=== PATIENT | male | born 1980 | race Caucasian/White ===

== ENCOUNTER 2017-04-16 05:25 | Emergency (ER) | payer MEDICAID ==
[~2017-04-16] VITALS: Ht 172.7 cm; Wt 95.5 kg
[~2017-04-16 05:25] MED LIST: HYDR-762 PO; IBUP-1542 PO; TAMS-14 PO
[2017-04-16 05:27] VITALS: Ht 172.7 cm; Wt 95.5 kg
--- NOTE | 2017-04-16 06:21 | ERD ---
ER Documentation Chief Complaint Date/Time DATE: 04/16/17 TIME: 06:13 Chief Complaint L flank pain today HPI 37-year-old male presents emergency department for left sided flank pain that started today. No trauma. Has mild dysuria. Denies headache, dizziness blurry vision, chest pain, neck pain, shoulder pain, chest pain, abdominal pain, nausea, vomiting, trauma, difficulty breathing, constipation, diarrhea, loss of bowel and bladder control, numbness or tingling sensation, recent travel, recent exposure to any illness, recent antibiotic use in the last 3 months, fever, chills. No known drug allergies. Past medical history of right-sided kidney stone. Surgical history of left-sided inguinal hernia. Medication: Motrin. Social: Not working at this time. Denies smoking, use of alcohol, use of illegal drugs. Physical examination revealed the patient has left-sided flank pain. Left-sided CVA tenderness. ROS All systems reviewed and are negative except as per history of present illness. Medications Home Meds Active Scripts Tramadol HCl (Tramadol HCl) 50 Mg Tablet, 50 MG PO Q6, #20 TAB Prov:JULIÁN PALUMBO 04/16/17 Tamsulosin Hcl* (Flomax*) 0.4 Mg Cap.er.24h, 0.4 MG PO DAILY, #30 CAP Prov:MARLEENALINAJULIÁN Jenkins 04/16/17 Ondansetron Hcl* (Zofran*) 4 Mg Tablet, 4 MG PO Q8H Y for NAUSEA AND/OR VOMITING , #30 TAB Prov:LINWOODJOHNSONMARLENI Alice 04/16/17 Ibuprofen* (Motrin*) 800 Mg Tab, 800 MG PO Q8 Y for PAIN AND OR ELEVATED TEMP, # 30 TAB Prov:LINWOODJOHNSONMARLENI Alice 04/16/17 Ciprofloxacin Hcl* (Ciprofloxacin Hcl*) 500 Mg Tablet, 500 MG PO BID for 10 Days , TAB Prov:MARLEENALINAJOHNSONMARLENI Alice 04/16/17 Tamsulosin Hcl* (Flomax*) 0.4 Mg Cap.er.24h, 0.4 MG PO QPM, #30 CAP Prov:MURPHY HENSON MD 08/07/15 Hydrocodone Bit-Acetaminophen* (Ada*) 10-325 Mg Tablet, 1 TAB PO Q6 Y for PAIN , #16 TAB Prov:MURPHY HENSON MD 08/07/15 Ibuprofen* (Motrin*) 600 Mg Tab, 600 MG PO Q6H Y for PAIN AND OR ELEVATED TEMP, #30 TAB Prov:MURPHY HENSON MD 08/07/15 Allergies Allergies: Coded Allergies: No Known Allergy (Unverified , 08/07/15) PMhx/Soc History of Surgery: Yes (hernia) Hx Alcohol Use: Yes (occasionally) Hx Substance Use: No Hx Tobacco Use: No Smoking Status: Never smoker Physical Exam Vitals Vital Signs Date Time Temp Pulse Resp B/P Pulse Ox O2 Delivery O2 Flow Rate FiO2 04/16/17 05:27 98.2 78 20 167/93 98 Physical Exam Const: [] Head: Atraumatic Eyes: Normal Conjunctiva ENT: Normal External Ears, Nose and Mouth. Neck: Full range of motion..~ No meningismus. Resp: Clear to auscultation bilaterally Cardio: Regular rate and rhythm, no murmurs Abd: Soft, non tender, non distended. Normal bowel sounds. Has left-sided CVA tenderness. There is no right upper/right lower/epigastric/left upper/left lower abdominal tenderness and light and deep palpation. Ambulatory with steady gait and without pain to abdomen. Able to jump 5 times without developing right-sided or right lower abdominal pain. No peritoneal signs. Skin: No petechiae or rashes Back: No midline or flank tenderness Ext: No cyanosis, or edema. C-spine/T-spine/L-spine midline with no deformity and is good and full range of motion. Neur: Awake and alert Psych: Normal Mood and Affect Result Diagram: 04/16/17 0646 04/16/17 0646 Results 24 hrs Laboratory Tests Test 04/16/17 06:46 White Blood Count 9.410^3/ul Red Blood Count 4.7910^6/ul Hemoglobin 14.7g/dl Hematocrit 41.8% Mean Corpuscular Volume 87.3fl Mean Corpuscular Hemoglobin 30.7pg Mean Corpuscular Hemoglobin Concent 35.2g/dl Red Cell Distribution Width 13.2% Platelet Count 12007^3/UL Mean Platelet Volume 10.1fl Neutrophils % 79.7% Lymphocytes % 13.9% Monocytes % 5.3% Eosinophils % 0.6% Basophils % 0.2% Nucleated Red Blood Cells % 0.0/100WBC Neutrophils # (Manual) 7.510^3/ul Lymphocytes # 1.310^3/ul Monocytes # 0.510^3/ul Eosinophils # 0.110^3/ul Basophils # 0.010^3/ul Nucleated Red Blood Cells # 0.010^3/ul Urine Color YELLOW Urine Clarity SLIGHTLY CLOUDY Urine pH 7.0 Urine Specific [place] 1.021 Urine Ketones NEGATIVEmg/dL Urine Nitrite NEGATIVEmg/dL Urine Bilirubin NEGATIVEmg/dL Urine Urobilinogen NEGATIVEmg/dL Urine Leukocyte Esterase NEGATIVELeu/ul Urine Microscopic RBC > 182/HPF Urine Microscopic WBC 4/HPF Urine Bacteria FEW/HPF Urine Mucus FEW/HPF Urine Hemoglobin 3+mg/dL Urine Glucose NEGATIVEmg/dL Urine Total Protein 1+mg/dl Sodium Level 145mmol/L Potassium Level 3.9mmol/L Chloride Level 102mmol/L Carbon Dioxide Level 28mmol/L Anion Gap 19 Blood Urea Nitrogen 14mg/dl Creatinine 0.80mg/dl Glucose Level 127mg/dl Calcium Level 9.4mg/dl Total Bilirubin 0.3mg/dl Direct Bilirubin 0.00mg/dl Indirect Bilirubin 0.3mg/dl Aspartate Amino Transf (AST/SGOT) 33IU/L Alanine Aminotransferase (ALT/SGPT) 44IU/L Alkaline Phosphatase 100IU/L Total Protein 8.4g/dl Albumin 4.6g/dl Globulin 3.80g/dl Albumin/Globulin Ratio 1.21 Amylase Level 86U/L Lipase 65U/L Current Medications Medications (Trade) Dose Ordered Sig/Moriah Route PRN Reason Start Time Stop Time Status Last Admin Dose Admin Ketorolac Tromethamine (Toradol) 60 mg ONCE STAT IM 04/16/17 06:22 04/16/17 06:25 DC 04/16/17 06:45 Ondansetron HCl 4 mg 4 mg ONCE STAT ODT 04/16/17 06:22 04/16/17 06:25 DC 04/16/17 06:44 Sodium Chloride (NS) 1,000 ml @ 1,000 mls/hr Q1H ONCE IV 04/16/17 07:30 04/16/17 08:29 DC 04/16/17 07:45 Morphine Sulfate 4 mg 4 mg ONCE STAT IV 04/16/17 07:16 04/16/17 07:17 DC 04/16/17 07:16 Ciprofloxacin/ Dextrose (Cipro Ivpb) 200 ml @ 200 mls/hr ONCE ONCE IVPB 04/16/17 08:00 04/16/17 08:59 04/16/17 07:55 Procedures/MDM Examination: Please see physical examination. Disease process, medical treatment was explained to the patient and family member. They verbalized understanding and agreed with the diagnostic tests, medical treatment, and follow-up care. Radiology: CT abdomen/pelvis without contrast Impression: 3 mm obstructing calculus at the left UVJ with mild left hydroureter. No additional renal, ureteral or bladder calculi are seen. Moderate to large fat containing left inguinal hernia. Blood works: Reviewed. Urinalysis: UTI. Treatment: Toradol. Zofran. IV insertion. Normal saline 1000 cc IV bolus. Cipro IV. Morphine IV> Re-evaluation: Denies headache, dizziness, blurry vision, neck pain, shoulder pain, chest pain, back pain, abdominal pain, nausea, vomiting. No episode of emesis in the emergency department. Alert and oriented 4. Speaks full and clear sentences. Respirations even and unlabored. Lung sounds clear to auscultation. Active bowel sounds. There is no right upper/right lower/ epigastric/left upper/left lower abdominal tenderness and light and deep palpation. Negative on Rovsings sign. Negative Calista sign. Able to jump 5 times without developing right-sided abdominal pain. No peritoneal signs. Ambulatory with steady gait. No neurovascular deficits. No neurological deficits. Consultation: Case was discussed with supervising emergency room physician, Dr. George Bell who agreed with my medical decision making to discharge the patient. Differential diagnosis:Pancreatitis versus cholelithiasis versus cholecystitis versus appendicitis versus diverticulitis versus nephrolithiasis versus pyelonephritis versus urinary tract infection Medical decision makin-year-old male presents emergency department for left sided flank pain that started today. No trauma. Has mild dysuria. Patient's complaint, patient's history about his complaint, my physical findings , my diagnostic test results, my reevaluation are consistent my final diagnosis of kidney stone, UTI. Medications prescribed are the following: Ciprofloxacin. Tramadol. Flomax. Motrin. Zofran. Patient and family member are made aware of the side effects and adverse reactions of the medications prescribed. Instructed on when to seek emergent and medical attention in case allergic/anaphylactic reactions or severe side effects and or adverse reactions to medications. Patient and family member verbalized understanding. Patient instructed Instructed to follow-up with his PCP in 24-48 hours. Follow-up with urologist in 24-48 hours. Instructed to Call 911 for chest pain, shortness of breath. Advised to come back here in ED as soon as possible for severity of symptoms which includes but not limited to: any new symptoms; shortness of breath/difficulty of breathing; cardiovascular changes; severe gastrointestinal symptoms; signs and symptoms of bleeding and or infection; signs of compartment syndrome/neurovascular changes; neurological changes/deficits. Patient and family member verbalized understanding. Upon discharge, patient is alert and oriented x 4, speaks full and clear sentences, denies pain, has no neurological deficits, has no neurovascular deficits, difficulty of breathing. Breathing even and unlabored. Lung sounds are clear to auscultation. Not in distress. Appears comfortable. Ambulatory with steady gait. Appears satisfied with care provided here in ED. Departure Diagnosis: Primary Impression: Flank pain Additional Impressions: Kidney stone UTI (urinary tract infection) Condition: Stable Additional Instructions: Instructed to follow-up with his PCP in 24-48 hours. Follow-up with urologist in 24-48 hours. Instructed to Call 911 for chest pain, shortness of breath. Advised to come back here in ED as soon as possible for severity of symptoms which includes but not limited to: any new symptoms; shortness of breath/difficulty of breathing; cardiovascular changes; severe gastrointestinal symptoms; signs and symptoms of bleeding and or infection; signs of compartment syndrome/neurovascular changes; neurological changes/deficits. Patient and family member verbalized understanding. JULIÁN PALUMBO Apr 16, 2017 06:21
[2017-04-16] MEDS ORDERED: KETOROLAC 60 MG INJ IM STA (06:22)
[2017-04-16] MEDS ORDERED: ONDANSETRON (ODT) 4 MG TAB ODT STA (06:22)
[2017-04-16 06:57] LABS: BASOPHILS % 0.2 % (0.0-2.0); EOSINOPHILS # 0.1 10^3/ul (0.0-0.5); EOSINOPHILS % 0.6 % (0.0-7.0); HEMATOCRIT 41.8 % (42.0-52.0); HEMOGLOBIN 14.7 g/dl (14.0-18.0); LYMPHOCYTES # 1.3 10^3/ul (0.8-2.9); LYMPHOCYTES % 13.9 % (15.0-51.0); MEAN CORPUSCULAR HEMOGLOBIN 30.7 pg (29.0-33.0); MEAN CORPUSCULAR HGB CONC 35.2 g/dl (32.0-37.0); MEAN CORPUSCULAR VOLUME 87.3 fl (82.0-101.0); MEAN PLATELET VOLUME 10.1 fl (7.4-10.4); MONOCYTE # 0.5 10^3/ul (0.3-0.9); MONOCYTES % 5.3 % (0.0-11.0); NEUTROPHILS % 79.7 % (39.0-77.0); PLATELET COUNT 240 10^3/UL (140-415); RED BLOOD COUNT 4.79 10^6/ul (4.70-6.10); RED CELL DISTRIBUTION WIDTH 13.2 % (11.5-14.5); WHITE BLOOD COUNT 9.4 10^3/ul (4.8-10.8)
--- NOTE | 2017-04-16 07:10 | RADRPT ---
PROCEDURE: CT Abdomen and Pelvis without contrast. CLINICAL INDICATION: Left costovertebral angle tenderness. TECHNIQUE: Routine axial tomographic images of the abdomen and pelvis were obtained from the domes the diaphragm to the symphysis pubis. The patient was scanned withoutoral or intravenous contrast. Coronal and sagittal reformatted images were obtained from the axial source images. Images were re viewed on a high-resolution PACS workstation. The total exam CTDI equals 19.61 mGy and the total exa m DLP equals 1319.73 mGy-cm. One or more of the following dose reduction techniques were used: Aut omated exposure control, adjustment of the mA and / or kV according to patient size, or use of itera tive reconstruction technique. COMPARISON: CT abdomen and pelvis dated 08/07/2015 FINDINGS: The visualized portions of the lung bases are clear. Evaluation of the intra-abdominal solid or cleo is somewhat limited on this noncontrast examination. The liver appears normal in size. There is no intra or extrahepatic biliary dilatation. The gallbladder is unremarkable by CT criteria. Th e spleen, pancreas, and adrenal glands are unremarkable. The kidneys are symmetric in size. There is a 3 mm calculus at the left UVJ. There is mild left hy droureter. The urinary bladder is grossly unremarkable. There is a small hiatal hernia. The bowel demonstrates normal course and caliber. There is no evid ence of bowel obstruction. The appendix is normal in appearance. The pelvic organs are grossly unr emarkable. No intraperitoneal free fluid, free air, or abscess is identified. No retroperitoneal, m esenteric, or inguinal lymphadenopathy is identified. The aorta is normal in caliber. There is a fat -containing left inguinal hernia. The osseous structures demonstrate disk protrusions at L4-5 and L5-S1. No significant subcutaneous soft tissue abnormalities are seen. IMPRESSION: 1. 3 mm obstructing calculus at the left UVJ with mild left hydroureter. No additional renal, uret eral or bladder calculi are seen. 2. Moderate to large fat containing left inguinal hernia. RPTAT: HH .Jacinta Patino MD, MD Date Time Electronically viewed and signed by .Jacinta Patino MD, on 04/16/2017 07:10 .G/
[2017-04-16] MEDS ORDERED: morphine 4 MG/ML VIAL IV STA ×2 (07:16→09:01)
[2017-04-16 07:21] LABS: ALBUMIN 4.6 g/dl (3.3-4.9); ALBUMIN/GLOBULIN RATIO 1.21; BILIRUBIN,INDIRECT 0.3 mg/dl (0-1.1); BILIRUBIN,TOTAL 0.3 mg/dl (0.2-1.3); CALCIUM 9.4 mg/dl (8.4-10.2); CREATININE 0.8 mg/dl (0.61-1.24); POTASSIUM 3.9 mmol/L (3.5-5.1); TOTAL PROTEIN 8.4 g/dl (6.1-8.1)
[2017-04-16 07:25] LABS: ADD UMIC YES; UR ASCORBIC ACID NEGATIVE (NEGATIVE); UR BACTERIA FEW /HPF (NONE SEEN); UR BILIRUBIN (Dip) NEGATIVE (NEGATIVE); UR BLOOD (Dip) 3+ mg/dL (NEGATIVE); UR CLARITY SLIGHTLY CLOUDY (CLEAR); UR COLOR YELLOW (YELLOW); UR GLUCOSE (Dip) NEGATIVE (NEGATIVE); UR KETONES (Dip) NEGATIVE (NEGATIVE); UR LEUKOCYTE ESTERASE (Dip) NEGATIVE Leu/ul (NEGATIVE); UR MUCUS FEW /HPF (NONE SEEN); UR NITRITE (Dip) NEGATIVE (NEGATIVE); UR RBC > 182 /HPF (0-5); UR SPECIFIC GRAVITY (Dip) 1.021 (1.003-1.030); UR TOTAL PROTEIN (Dip) 1+ mg/dl (NEGATIVE); UR UROBILINOGEN (Dip) NEGATIVE (NEGATIVE)
[2017-04-16] MEDS ORDERED: SOD CHLORIDE 0.9% 1,000 ML IV ONE (07:30)
[2017-04-16] MEDS ORDERED: CIPR500T4 PO (07:41)
[2017-04-16] MEDS ORDERED: IBUP800T25 PO (07:41)
[2017-04-16] MEDS ORDERED: ONDA4TAB8 PO (07:42)
[2017-04-16] MEDS ORDERED: TAMS-14 PO (07:42)
[2017-04-16] MEDS ORDERED: TRAM50TA2 PO (07:42)
[2017-04-16] MEDS ORDERED: CIPROFLOXACIN 400MG/D5W 200 ML IVPB ONE (08:00)
== END 2017-04-16 09:12 | disposition home or self-care (01) ==
LOC: FTE 05:25
DX: R10.9 Unspecified abdominal pain (principal); N20.0 Calculus of kidney; N39.0 Urinary tract infection, site not specified
CPT/HCPCS: 74176; 80053; 81001; 82150; 83690; 85025; 87086; 96372; 96374; 96375; 96376; J0744; J1885; J2270; J7030; Z7502; Z7610

== ENCOUNTER 2018-12-18 11:26 | Emergency (ER) | payer MEDICAID ==
[~2018-12-18] VITALS: Ht 172.7 cm; Wt 94.4 kg
[~2018-12-18 11:26] MED LIST changes: +CIPR500T4 PO; +IBUP800T48 PO; +ONDA4TAB8 PO; +TRAM50TA2 PO
[2018-12-18 11:37] VITALS: BP 138/92; PULSE 124; RESP 18; Ht 172.7 cm; Wt 94.4 kg
--- NOTE | 2018-12-18 13:33 | ERD ---
ER Documentation Chief Complaint Chief Complaint dysuria x 4 days HPI 38-year-old male, previously healthy, presents to the emergency department, complaining of 4 days with dysuria. Otherwise, no fever, no chills, no hematuria, no penile discharge. The patient denies history of sexually transmitted infections, no abdominal pain. ROS All systems reviewed and are negative except as per history of present illness. Medications Home Meds Active Scripts Tamsulosin Hcl* (Flomax*) 0.4 Mg Cap.er.24h, 0.4 MG PO QPM, #30 CAP Prov:ROHIT JOSHI MD 12/18/18 Tramadol HCl (Tramadol HCl) 50 Mg Tablet, 50 MG PO Q6, #20 TAB Prov:JULIÁN PALUMBO 04/16/17 Tamsulosin Hcl* (Flomax*) 0.4 Mg Cap.er.24h, 0.4 MG PO DAILY, #30 CAP Prov:JULIÁN PALUMBO 04/16/17 Ondansetron Hcl* (Zofran*) 4 Mg Tablet, 4 MG PO Q8H PRN for NAUSEA AND/OR VOM ITING, #30 TAB Prov:JULIÁN PALUMBO 04/16/17 Ibuprofen* (Motrin*) 800 Mg Tab, 800 MG PO Q8 PRN for PAIN AND OR ELEVATED TEMP, #30 TAB Prov:JULIÁN PALUMBO 04/16/17 Ciprofloxacin Hcl* (Ciprofloxacin Hcl*) 500 Mg Tablet, 500 MG PO BID for 10 Days, TAB Prov:JULIÁN PALUMBO 04/16/17 Tamsulosin Hcl* (Flomax*) 0.4 Mg Cap.er.24h, 0.4 MG PO QPM, #30 CAP Prov:MURPHY HENSON MD 08/07/15 Hydrocodone Bit-Acetaminophen* ([place]*) 10-325 Mg Tablet, 1 TAB PO Q6 PRN for PAIN, #16 TAB Prov:MURPHY HENSON MD 08/07/15 Ibuprofen* (Motrin*) 600 Mg Tab, 600 MG PO Q6H PRN for PAIN AND OR ELEVATED TEMP, #30 TAB Prov:MURPHY HENSON MD 08/07/15 Allergies Allergies: Coded Allergies: No Known Allergy (Unverified , 08/07/15) PMhx/Soc History of Surgery: Yes (hernia) Hx Alcohol Use: Yes (occasionally) Hx Substance Use: No Hx Tobacco Use: No Smoking Status: Never smoker FmHx Family History: No diabetes, No coronary disease Physical Exam Vitals Vital Signs Date Temp Pulse Resp B/P (MAP) Pulse Ox O2 O2 Flow FiO2 Time Delivery Rate 12/18/18 98.1 124 18 138/92 97 11:37 (107) Physical Exam Const: No acute distress Head: Atraumatic Eyes: Normal Conjunctiva ENT: Normal External Ears, Nose and Mouth. Neck: Full range of motion. No meningismus. Resp: Clear to auscultation bilaterally Cardio: Regular rate and rhythm, no murmurs Abd: Soft, non tender, non distended. Normal bowel sounds Skin: No petechiae or rashes Back: No midline or flank tenderness Ext: No cyanosis, or edema Neur: Awake and alert Psych: Normal Mood and Affect Results 24 hrs Laboratory Tests Test 12/18/18 13:41 Urine Color YELLOW Urine Clarity CLEAR Urine pH 5.0 Urine Specific [place] 1.021 Urine Ketones NEGATIVE mg/dL Urine Nitrite NEGATIVE mg/dL Urine Bilirubin NEGATIVE mg/dL Urine Urobilinogen NEGATIVE mg/dL Urine Leukocyte Esterase NEGATIVE Eleanor/ul Urine Hemoglobin NEGATIVE mg/dL Urine Glucose NEGATIVE mg/dL Urine Total Protein NEGATIVE mg/dl Procedures/MDM Differential diagnosis include but not limited to: UTI, BPH, kidney stones, irritable bowel syndrome, inflammatory bowel syndrome, malabsorption syndrome, cholelithiasis, food intolerance, medication side effect, pancreatitis, diverticulitis, bowel obstruction. Low suspicion for acute abdomen Physical examination and clinical presentation consistent most likely with dysuria, secondary to BPH. During the ED course the patient remained stable, no new complaints. Results and clinical impression discussed with patient who agrees with management. The patient is stable to be treated outpatient and will be discharged home, some side effects of prescribed medications (headache, rash, nausea, vomiting, diarrhea, drowsiness, habituation, bleeding, hypertension, interactions with other medications) were reviewed. The patient was instructed to follow up with the primary care provider in the next 48h. If symptoms persist, worsen or new symptoms develop, then patient should return to the ED immediately. Instructions explained and given directly by me to the patient with acknowledgment and demonstrated understanding. Disclaimer: Inadvertent spelling and grammatical errors are likely due to EHR/dictation software use and do not reflect on the overall quality of patient care. Also, please note that the electronic time recorded on this note does not necessarily reflect the actual time of the patient encounter. Departure Diagnosis: Primary Impression: Dysuria Condition: Stable Additional Instructions: Muchas jacky por [facility] para zuniga servicio. Esperamos que en zuniga visita a la mahsa de emergencia zuniga problema medico haya sido solucionado y que se sienta mucho mejor. Para estar seguros que zuniga mejoria sigue en proceso, le pedimos el favor de hacer baldomero jessica de seguimiento medico con zuniga doctor primario en los proximos 2-4 de leon. Lleve con usted estos documentos y las medicinas recetadas. Si ryder sintomas empeoran, NO SE ESPERE, por favor regrese a mahsa de emergencia INMEDIATAMENTE. En rip que usted no tenga un mdico de atencin primaria: Llame al mdico o clnica comunitaria de referencia que aparece abajo diane las horas de consultorio para hacer baldomero jessica para que le vean. CLINICAS: [facility] [phone] [facility] [phone] [facility] [phone] [facility] [phone] [place] [id number] [phone] [facility] [phone] ROHIT SINHA MD December 18, 2018 13:33
[2018-12-18] MEDS ORDERED: TAMS-14 PO (14:10)
== END 2018-12-18 14:16 | disposition home or self-care (01) ==
LOC: FTE 11:26
DX: R30.0 Dysuria (principal)
CPT/HCPCS: 81003; Z7502; 99283